=== PATIENT | female | born 1940 | race Caucasian/White ===

== ENCOUNTER → 2016-09-21 | Outpatient (CLI) | payer OTHER, BC ==
--- NOTE | 2016-09-21 18:14 | MA ---
Screening Digital Mammogram with Digital Breast Tomosynthesis Clinical Indications: Routine screening. Previous left-sided breast cancer with lumpectomy and chemot herapy. Technique: Standard cephalocaudal projections are obtained. Digital breast tomosynthesis was perform ed in the MLO projection with reconstruction at 1.0 mm slice thickness and composite MLO views recons tructed. This examination is processed by the CAD computer aided detection system. Comparison: Prior studies are unavailable for review at this time.. Breast density: C; The breasts are heterogeneously dense, which may obscure small masses. Findings: CAD was reviewed. Within the upper central right breast, there is a possible nodule versus overlapping breast parenchymal tissue. This is not well delineated in the cc projection that on the t omosynthesis imaging appears to be positioned just inferior and lateral to densely calcified vessel N o additional masses are seen within either breast. Architectural distortion is noted upper inner left breast from previous lumpectomy. There are no significant clusters of microcalcifications. The axill a are clear. Impression: Possible nodule versus overlapping breast parenchymal tissue upper central right breast j ust inferior and lateral to densely calcified vessel present. Recommendation: If prior outside mammograms are unavailable for comparison then ultrasound of the rig ht breast is recommended for further characterization in this patient with history of breast cancer o n the left side. Additional imaging evaluation on the right is needed if prior outside imaging is unavailable for vicente grewalson. BI-RADS 0. Dense mammographic pattern limits the sensitivity of mammography in this patient. If there is a clini bettina palpable abnormality, recommend additional imaging with ultrasound if clinically indicated. [facility] will send a result letter to the patient. Negative mammography should not preclude additional workup of a clinically suspicious finding. The patient's information is entered into a reminder system with a target due date for her next mammo gram.
== END ==
LOC: FIMAGING 14:48
DX: Z12.31 Encounter for screening mammogram for malignant neoplasm of breast (principal); Z85.3 Personal history of malignant neoplasm of breast
CPT/HCPCS: G0202

== ENCOUNTER → 2016-09-29 | Outpatient (CLI) | payer OTHER, BC ==
--- NOTE | 2016-09-29 15:05 | US ---
Right Breast Ultrasound History: Asymmetry upper right breast 1-2:00 radial, personal history of left breast malignancy Comparison: Screening mammogram September 21, 2016 Technique: I first performed a directed physical examination. This was followed by ultrasound exam with a high frequency linear transducer. Findings: Physical examination of the upper right breast is negative. On ultrasound at the 1:00 radia l 4 cm from the nipple is a band of dense normal parenchyma that is similar in size and shape to the mammographic finding. No solid or cystic pathologic abnormality is identified. There is no sonographi c architectural distortion. Impression: The mammographic density is probably benign. Recommendation: Six-month follow-up right mammogram with tomosynthesis to ensure stability. BI-RADS 3 probably benign. Results and recommendation discussed with the patient in detail who is in agreement with the plan.
== END ==
LOC: FIMAGING 13:43
PROVIDERS: ATTEND Internal Medicine Hematology & Oncology
DX: Z12.39 Encounter for other screening for malignant neoplasm of breast (principal); R92.2 Inconclusive mammogram; Z85.3 Personal history of malignant neoplasm of breast